=== PATIENT | female | born 1990 | race Caucasian/White ===

== ENCOUNTER 2016-08-10 10:47 | Outpatient (CLI) | payer OTHER ==
[2016-08-13 08:06] LABS: RUBELLA AB, IgG 4.39 index (Immune >0.99)
[2016-08-13 09:17] LABS: VARICELLA ZOSTER IgG 2206 index (Immune >165)
== END 2016-08-10 21:11 | disposition home or self-care (01) ==
LOC: SLB 10:47
DX: Z01.84 Encounter for antibody response examination (principal)
CPT/HCPCS: 36415; 86706; 86735; 86762; 86765; 86787

== ENCOUNTER 2016-08-16 11:17 | Outpatient (CLI) | payer OTHER ==
[2016-08-17 11:07] LABS: HEPATITIS B CORE AB, TOTAL Negative (Negative); HEPATITIS B SURFACE AG Negative (Negative); HEPATITIS C VIRUS AB <0.1 s/co ratio (0.0-0.9)
== END 2016-08-16 19:28 | disposition home or self-care (01) ==
LOC: SLB 11:17
PROVIDERS: ATTEND Internal Medicine Hospice and Palliative Medicine
DX: T14.8 Other injury of unspecified body region (principal); W46.0XXA Contact with hypodermic needle, initial encounter; Y93.89 Activity, other specified; Y92.89 Other specified places as the place of occurrence of the external cause; Y99.8 Other external cause status
CPT/HCPCS: 36415; 86704; 86706; 86803; 87340

== ENCOUNTER 2016-10-02 17:16 | Emergency (ER) | payer OTHER ==
[~2016-10-02] VITALS: Ht 172.7 cm; Wt 61.2 kg
--- NOTE | 2016-10-02 17:20 | NUR ---
Pt placed to ER bed 08, to [facility]bar[facility], report given to TATIANA Wong.
--- NOTE | 2016-10-02 17:22 | NUR ---
Note lucybrady in EDM - 10/02/16 at 1745 by [id number] Patient is A&O x 4. Skin is warm and dry. Patient reports that 2 weeks ago she was in a meeting and started feeling left chest tightness and numbness to left fingers and bilateral feet. Patient was seen by PMD and presents with abnormal EKG. Denies any chest pain or Shortness of breath, nausea or vomiting. No other complaints/injuries per patient or as noted. Will continue to monitor
--- NOTE | 2016-10-02 17:25 | NUR ---
# 20 gauge angiocath placed to Left antecubital. Use of asceptic technique. Opsite placed over site. Blood return noted. Blood for lab drawn from site. Flushed with 10 cc of normal saline. No evidence of infiltration noted. Patient tolerated well.
--- NOTE | 2016-10-02 17:25 | NUR ---
Dr. Walden at bedside.
[2016-10-02 17:40] LABS: BASOPHILS # (AUTO) 0.1 K/uL (0.0-0.2); BASOPHILS % (AUTO) 0.6 % (0.0-2.0); EOSINOPHILS # (AUTO) 0.4 K/uL (0.0-0.4); EOSINOPHILS % (AUTO) 4.2 % (0.0-4.0); HEMATOCRIT 38.4 % (36-48); HEMOGLOBIN 12.8 g/dL (12.0-16.0); LYMPHOCYTES # (AUTO) 2.5 K/uL (1.0-5.5); LYMPHOCYTES % (AUTO) 27.3 % (20.5-51.5); MEAN CORPUSCULAR HEMOGLOBIN 30 pg (27-31); MEAN CORPUSCULAR HGB CONC 33 % (32-36); MEAN CORPUSCULAR VOLUME 88 fL (79.0-98.0); MONOCYTES # (AUTO) 0.6 K/uL (0.0-1.0); MONOCYTES % (AUTO) 7.1 % (1.7-9.3); NEUTROPHILS # (AUTO) 5.5 K/uL (1.8-7.7); NEUTROPHILS % (AUTO) 60.8 % (40.0-70.0); PLATELET COUNT (AUTO) 344 K/uL (130-430); RED BLOOD CELL COUNT(AUTO) 4.35 MIL/uL (4.2-6.2); RED CELL DISTRIBUTION WIDTH 13.4 % (9.0-15.0); WHITE BLOOD COUNT (AUTO) 9.1 K/uL (4.8-10.8)
[2016-10-02 17:56] LABS: CALCIUM 8.4 mg/dL (8.4-11.0); CREATININE 0.77 mg/dL (0.55-1.30); POTASSIUM 3.6 mmol/L (3.5-5.1)
[2016-10-02 17:58] LABS: PROTHROMBIN TIME 10.8 SECS (9.5-12.5)
[2016-10-02 18:10] LABS: ALBUMIN 4.4 g/dL (3.4-4.8); THYROID STIMULATING HORMONE 1.21 uIu/mL (0.34-4.82); TOTAL BILIRUBIN 0.2 mg/dL (0.0-1.0); TOTAL PROTEIN, SERUM 7.9 g/dL (6.4-8.3)
[2016-10-02 18:30] LABS: BILIRUBIN,URINE NEGATIVE (NEGATIVE); BLOOD, URINE NEGATIVE (NEGATIVE); CLARITY/URINE CLEAR (CLEAR); COLOR,URINE YELLOW (YELLOW); GLUCOSE,URINE NEGATIVE (NEGATIVE); KETONES,URINE NEGATIVE (NEGATIVE); LEUKOCYTE ESTERASE ,URINE NEGATIVE (NEGATIVE); NITRITE, URINE NEGATIVE (NEGATIVE); PH,URINE 5.5 (5.0-8.0); PROTEIN URINE NEGATIVE (NEGATIVE); UROBILINOGEN,URINE 0.2 (0.2-1.0)
[2016-10-02 18:38] VITALS: BP_SYST 128
--- NOTE | 2016-10-02 18:38 | NUR ---
Patient given written and verbal discharge instructions and verbalizes understanding. ER MD discussed with patient the results and treatment provided. Patient in stable condition. ID arm band removed. IV catheter removed intact and dressing applied, no active bleeding. No Rx given. Patient educated on pain management and to follow up with PMD x 2 days. Pain Scale 0/10 Opportunity for questions provided and answered.
== END 2016-10-02 18:38 | disposition home or self-care (01) ==
LOC: SED 17:16
DX: R07.89 Other chest pain (principal); F90.9 Attention-deficit hyperactivity disorder, unspecified type; Z86.79 Personal history of other diseases of the circulatory system
CPT/HCPCS: 36415; 71010; 80053; 80061; 81003; 82550-TC; 83880; 84443-TC; 84484; 85025; 85379; 85610-TC; 85730-TC; 93005; 99285